=== PATIENT | male | born 1960 ===

== ENCOUNTER 2021-06-06 15:59 | Emergency (ER) | payer OTHER ==
[~2021-06-06] VITALS: Ht 185.4 cm; Wt 99.8 kg
[2021-06-06 19:05] VITALS: BP 124/86
== END 2021-06-06 20:48 | disposition home or self-care (01) ==
LOC: ER 15:59
DX: M79.622 Pain in left upper arm (principal); M25.512 Pain in left shoulder; D17.22 Benign lipomatous neoplasm of skin and subcutaneous tissue of left arm; I10 Essential (primary) hypertension
CPT/HCPCS: 73030; 76642